=== PATIENT | female | born 1955 | race Caucasian/White ===

== ENCOUNTER 2019-05-18 10:15 | Day surgery (SDC) | payer MEDICARE, MEDICAID ==
[2019-05-13 13:43] LABS: BASOPHILS % (AUTO) 0.7 % (0-1); EOSINOPHILS # (AUTO) 0.3 X10'3 (0-0.9); EOSINOPHILS % (AUTO) 4.3 % (0-6); LYMPHOCYTES # (AUTO) 2.3 X10'3 (1.1-4.8); LYMPHOCYTES % (AUTO) 35.9 % (21-51); MEAN CORPUSCULAR HEMOGLOBIN 31.3 PG (27.0-31.0); MEAN CORPUSCULAR HGB CONC 33.6 g/dL (33.0-36.5); MEAN CORPUSCULAR VOLUME 92.9 FL (78-98); MEAN PLATELET VOLUME 7.9 FL (7.4-10.4); MONOCYTES # (AUTO) 0.3 X10'3 (0-0.9); MONOCYTES % (AUTO) 5.2 % (2-12); NEUTROPHILS # (AUTO) 3.5 X10'3 (1.8-7.7); NEUTROPHILS % (AUTO) 53.9 % (42-75); PRE OP HEMATOCRIT 37.9 % (35.0-45.0); PRE OP HEMOGLOBIN 12.7 g/dL (12.0-16.0); PRE OP PLATELET COUNT 260 X10'3 (140-440); RED BLOOD COUNT 4.08 X10'6 (4.20-5.60); RED CELL DISTRIBUTION WIDTH 13.7 % (11.5-14.5)
[2019-05-13 13:49] LABS: ALBUMIN 3.4 G/DL (3.4-5.0); ALBUMIN/GLOBULIN RATIO 0.9 (1.1-1.5); ALKALINE PHOSPHATASE 96 IU/L (46-116); BLOOD UREA NITROGEN 11 MG/DL (7-18); BUN/CREATININE RATIO 11.6 (6.6-38.0); CALCIUM 9.6 MG/DL (8.5-10.1); CHLORIDE 107 MMOL/L (99-107); CREATININE 0.95 MG/DL (0.40-0.90); PRE OP ALT 21 U/L (30-65); PRE OP ANION GAP 5 (8-16); PRE OP AST 14 U/L (10-37); PRE OP BILIRUB, TOTAL 0.2 MG/DL (0.0-1.0); PRE OP GLUCOSE 147 MG/DL (70-104); PRE OP POTASSIUM 4.1 MMOL/L (3.4-5.1); PRE OP SODIUM 142 MMOL/L (135-145); TOTAL CARBON DIOXIDE 30.5 MMOL/L (24-32); eGFR 59 ML/MIN
[2019-05-13 16:05] LABS: CLARITY,URINE SLIGHTLY CLOUDY (Clear); COLOR,URINE YELLOW (Yellow); GLUCOSE, URINE NEGATIVE (Neg); KETONES,URINE NEGATIVE (Neg); LEUKOCYTE ESTERASE ,URINE NEGATIVE (Neg); NITRITES, URINE NEGATIVE (Neg); OCCULT BLOOD,URINE TRACE-INTACT (Neg); PROTEIN,URINE NEGATIVE (Neg); UA COLLECTION TYPE CLN CATCH MIDSTREAM; UROBILINOGEN,URINE 0.2 E.U/dL (0.2-1.0)
[2019-05-13 16:11] LABS: SQUAMOUS EPITHELIAL CELL,UR FEW /LPF (FEW); TRANSITIONAL EPI CELLS,URINE FEW /HPF
[2019-05-13 16:12] LABS: BACTERIA,URINE FEW /HPF (Neg); MUCUS STRANDS FEW /LPF (Neg); RBC,URINE 0-2 /HPF (0-2); WBC,URINE 0-4 /HPF (0-4)
[~2019-05-18] VITALS: Ht 167.6 cm; Wt 110.5 kg
[2019-05-18] VITALS (8 sets, daily range): BP systolic 138–154; BP diastolic 60–85
[~2019-05-18 10:15] MED LIST: ASPI-12 PO; DIAZ10TA4 PO; DOCUMENT DATE & TIME OF BETA-BLOCKER PO ONE; FLUO20CA39 PO; HYDR25TA4 PO; LAMO200T2 PO; LISI-644 PO; METF500T PO; OMEP20CA11 PO; PROP60CA37 PO; SIMV20TA5 PO; TRAZ50TA54 PO; ZOLP10TA5 PO; cefazolin/dext.iso 2gm/100 ML IV ONE; famotidine 20mg tablet PO ONE; ringers solution, lacted 1,000 ML IV SCH
[2019-05-18] MEDS ORDERED: HYDROcodone/acetaminophen 5mg/325mg tablet PO ONE (11:45)
[2019-05-18] MEDS ORDERED: LIDOcaine 1% 30ml preserv. free vial ONE (14:39)
[2019-05-18] MEDS ORDERED: BUPIVAcaine/PF 2.5 mg/ml (0.25%) 30ml vial ONE (14:40)
[2019-05-18] MEDS ORDERED: fentaNYL/PF 50MCG/1 ML 2ML syringe ONE ×2 (14:52→15:04)
[2019-05-18] MEDS ORDERED: propofol inj 20 ML IV ONE (14:52)
[2019-05-18] MEDS ORDERED: LIDOcaine 1%/PF 5ML 10 MG/ML VIAL ONE (14:52)
[2019-05-18] MEDS ORDERED: midazolam 2 mg/2 ml injection ONE (14:52)
[2019-05-18] MEDS ORDERED: ketamine 50 mg/ml 10ml vial ONE (14:57)
[2019-05-18] MEDS ORDERED: ketamine 50mg/5ml syringe ONE (14:58)
--- NOTE | 2019-05-18 15:19 | NUR ---
Received from OR via [facility], accompanied by Anesthesiologist DR GARCIA and report given by Anesthesiologist. PT DROWSY, DENIES PAIN, LEFT LOWER ABDOMEN W/FOAM TAPE COVERING INCISION CDI. Addendum: 05/18/19 at 1709 by Yeny Ramirez RN Amended: Links added.
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
== END 2019-05-18 16:19 | disposition home or self-care (01) ==
LOC: PAS 10:15
PROVIDERS: ATTEND Surgery
DX: D17.1 Benign lipomatous neoplasm of skin and subcutaneous tissue of trunk (principal); E11.9 Type 2 diabetes mellitus without complications; I10 Essential (primary) hypertension; G47.33 Obstructive sleep apnea (adult) (pediatric); F31.9 Bipolar disorder, unspecified; M19.90 Unspecified osteoarthritis, unspecified site; E66.9 Obesity, unspecified; Z68.39 Body mass index [BMI] 39.0-39.9, adult; Z98.890 Other specified postprocedural states; Z90.49 Acquired absence of other specified parts of digestive tract; Z79.84 Long term (current) use of oral hypoglycemic drugs; Z79.82 Long term (current) use of aspirin; Z79.899 Other long term (current) drug therapy
CPT/HCPCS: 22903; 36415; 80053; 81001; 82948; 85025; 93005; J2001; J2250; J2704; J3010; J3490; 88304; A4215; A4618; A6449; A7000; J7120

== ENCOUNTER 2019-05-27 18:23 | Inpatient (IN) | payer MEDICARE, MEDICAID ==
[~2019-05-27] VITALS: Ht 167.6 cm; Wt 115.0 kg
[~2019-05-27 18:23] MED LIST changes: -DOCUMENT DATE & TIME OF BETA-BLOCKER PO ONE; -PROP60CA37 PO; -cefazolin/dext.iso 2gm/100 ML IV ONE; -famotidine 20mg tablet PO ONE; -ringers solution, lacted 1,000 ML IV SCH
[2019-05-27] MEDS ORDERED: normal saline 1000ML IV soln IV ONE (18:40)
[2019-05-27] MEDS ORDERED: CefTRIAXone 2gm/D5W 50ml 50 ML IV ONE (18:40)
[2019-05-27] MEDS ORDERED: ondansetron/PF 4mg/2ml inj IV ONE (18:40)
[2019-05-27] MEDS ORDERED: fentaNYL/PF 50MCG/1 ML 2ML syringe IV ONE ×2 (18:40→21:05)
--- NOTE | 2019-05-27 19:09 | NUR ---
PRESSURE BAG ON FLUIDS
[2019-05-27 19:11] LABS: BASOPHILS % (AUTO) 0.4 % (0-1); EOSINOPHILS # (AUTO) 0.1 X10'3 (0-0.9); EOSINOPHILS % (AUTO) 1.8 % (0-6); HEMATOCRIT 24.4 % (35.0-45.0); HEMOGLOBIN 8.4 g/dl (12.0-16.0); LYMPHOCYTES # (AUTO) 2.6 X10'3 (1.1-4.8); MEAN CORPUSCULAR HEMOGLOBIN 31.7 PG (27.0-31.0); MEAN CORPUSCULAR HGB CONC 34.4 g/dL (33.0-36.5); MEAN CORPUSCULAR VOLUME 92.2 FL (78-98); MEAN PLATELET VOLUME 7.5 FL (7.4-10.4); MONOCYTES # (AUTO) 0.5 X10'3 (0-0.9); MONOCYTES % (AUTO) 6.3 % (2-12); NEUTROPHILS # (AUTO) 4.2 X10'3 (1.8-7.7); NEUTROPHILS % (AUTO) 56.5 % (42-75); PLATELET COUNT 261 X10'3 (140-440); RED BLOOD COUNT 2.65 X10'6 (4.20-5.60); RED CELL DISTRIBUTION WIDTH 13.6 % (11.5-14.5); WHITE BLOOD COUNT 7.5 X10'3 (4.5-11.0)
[2019-05-27 19:25] LABS: ALANINE AMINOTRANSFERASE 18 U/L (12-78); ALBUMIN 3.1 G/DL (3.4-5.0); ALKALINE PHOSPHATASE 87 IU/L (46-116); ANION GAP 7 (8-16); ASPARTATE AMINO TRANSFERASE 8 U/L (10-37); BILIRUBIN,TOTAL 0.2 MG/DL (0.1-1.0); BLOOD UREA NITROGEN 26 MG/DL (7-18); BUN/CREATININE RATIO 21.1 (6.6-38.0); CALCIUM 9.2 MG/DL (8.5-10.1); CHLORIDE 106 MMOL/L (99-107); CREATININE 1.23 MG/DL (0.40-0.90); GLUCOSE 130 MG/DL (70-104); MAGNESIUM 1.4 MG/DL (1.5-2.4); POTASSIUM 4.5 MMOL/L (3.5-5.1); SODIUM 138 MMOL/L (135-145); TOTAL CARBON DIOXIDE 24.7 MMOL/L (24-32); TOTAL PROTEIN 6.2 G/DL (6.4-8.2); eGFR 44 ML/MIN
--- NOTE | 2019-05-27 19:26 | NUR ---
PT IS IN CT
[2019-05-27 19:29] LABS: PARTIAL THROMBOPLASTIN TIME 23 SECONDS (22-32)
--- NOTE | 2019-05-27 19:39 | NUR ---
BACK IN BED
[2019-05-27 19:45] LABS: CLARITY,URINE CLEAR (Clear); COLOR,URINE YELLOW (Yellow); GLUCOSE, URINE NEGATIVE (Neg); KETONES,URINE NEGATIVE (Neg); LEUKOCYTE ESTERASE ,URINE TRACE (Neg); NITRITES, URINE NEGATIVE (Neg); OCCULT BLOOD,URINE NEGATIVE (Neg); PH,URINE 5.5 (4.8-8.0); PROTEIN,URINE NEGATIVE (Neg); UA COLLECTION TYPE NON-SPECIFIED; UROBILINOGEN,URINE 0.2 E.U/dL (0.2-1.0)
[2019-05-27 19:51] LABS: BACTERIA,URINE NONE SEEN /HPF (Neg); RBC,URINE NONE SEEN /HPF (0-2); SQUAMOUS EPITHELIAL CELL,UR FEW /LPF (FEW); WBC,URINE 0-4 /HPF (0-4)
[2019-05-27 20:00] VITALS: BP 124/74
--- NOTE | 2019-05-27 20:34 | NUR ---
UP TO THE BATHROOM, SHE IS VERY WEAK, GETS DIZZY EASILY AND SOB.
--- NOTE | 2019-05-27 20:35 | NUR ---
PT STATES SHE HAD BLACK STOOL LAST NIGHT, HER HEMOGLOBIN HAS DROPPED NEARLY 4 POINTS IN 2 WEEKS. HE HAS A 'LAP BAND', THE HAD IT DONE IN [place]' SHE DOESN'T WANT ANY BLOOD PRODUCTS, SHE UNDERSTANDS WHAT 'HEMOGLOBIN' MEANS, DISCUSSED THIS WITH HER. SHE IS [employer] WITNESS, AND IT IS ALSO HER BELIEF. MD NEFF INFORMED, ASSISTED WITH A GUIAC OF STOOL, WHICH IS POSITIVE. DARK STOOL ON HIS GLOVE.
[2019-05-27] MEDS ORDERED: pantoprazole 40 MG vial IV ONE (20:40)
[2019-05-27] MEDS ORDERED: ESOMEPRAZOLE 40 MG VIAL IV ONE (21:02)
--- NOTE | 2019-05-27 21:15 | NUR ---
pt at bedside, no needs at this time, will obtain med list
[2019-05-27] MEDS: pantoprazole 40MG/NS 100ML BAG 100 ML IV SCH (21:18)
[2019-05-27] MEDS ORDERED: morphine 2 MG/ML inj. syringe IV PRN (21:40)
[2019-05-27 21:54] LABS: OCCULT BLOOD STOOL POSITIVE (Neg)
[2019-05-27] MEDS: normal saline 1000ml 1,000 ML IV SCH (22:07)
[2019-05-27 22:23] LABS: BASOPHILS % (AUTO) 0.5 % (0-1); EOSINOPHILS # (AUTO) 0.2 X10'3 (0-0.9); EOSINOPHILS % (AUTO) 2.7 % (0-6); HEMATOCRIT 23.6 % (35.0-45.0); HEMOGLOBIN 7.9 g/dl (12.0-16.0); LYMPHOCYTES # (AUTO) 2.6 X10'3 (1.1-4.8); LYMPHOCYTES % (AUTO) 39.6 % (21-51); MEAN CORPUSCULAR HEMOGLOBIN 31.2 PG (27.0-31.0); MEAN CORPUSCULAR HGB CONC 33.4 g/dL (33.0-36.5); MEAN CORPUSCULAR VOLUME 93.5 FL (78-98); MEAN PLATELET VOLUME 7.6 FL (7.4-10.4); MONOCYTES # (AUTO) 0.4 X10'3 (0-0.9); MONOCYTES % (AUTO) 6.1 % (2-12); NEUTROPHILS # (AUTO) 3.3 X10'3 (1.8-7.7); NEUTROPHILS % (AUTO) 51.1 % (42-75); PLATELET COUNT 236 X10'3 (140-440); RED BLOOD COUNT 2.52 X10'6 (4.20-5.60); RED CELL DISTRIBUTION WIDTH 13.7 % (11.5-14.5); WHITE BLOOD COUNT 6.5 X10'3 (4.5-11.0)
--- NOTE | 2019-05-27 22:23 | NUR ---
assisted pt to the commode
[2019-05-27] MEDS: traZODone 50mg tablet PO SCH (22:58)
[2019-05-27] MEDS: lamoTRIgine 100mg tablet PO SCH (22:58)
[2019-05-27] MEDS: zolpidem 5mg tablet PO SCH (22:58)
[2019-05-27] MEDS ORDERED: epoetin 20,000 units/ml inj SQ ONE (23:10)
[2019-05-27] MEDS ORDERED: tranexamic acid inj. 1,150 MG in normal saline 100ml IV soln 100 ML IV ONE (23:15)
[2019-05-28] VITALS (13 sets, daily range): BP systolic 92–137; BP diastolic 41–69
[2019-05-28 01:44] LABS: BASOPHILS % (AUTO) 0.4 % (0-1); EOSINOPHILS # (AUTO) 0.2 X10'3 (0-0.9); EOSINOPHILS % (AUTO) 2.8 % (0-6); HEMATOCRIT 22.7 % (35.0-45.0); HEMOGLOBIN 7.6 g/dl (12.0-16.0); LYMPHOCYTES # (AUTO) 2.6 X10'3 (1.1-4.8); LYMPHOCYTES % (AUTO) 39.9 % (21-51); MEAN CORPUSCULAR HEMOGLOBIN 31.2 PG (27.0-31.0); MEAN CORPUSCULAR HGB CONC 33.5 g/dL (33.0-36.5); MEAN CORPUSCULAR VOLUME 93.1 FL (78-98); MEAN PLATELET VOLUME 7.1 FL (7.4-10.4); MONOCYTES # (AUTO) 0.4 X10'3 (0-0.9); MONOCYTES % (AUTO) 6.8 % (2-12); NEUTROPHILS # (AUTO) 3.3 X10'3 (1.8-7.7); NEUTROPHILS % (AUTO) 50.1 % (42-75); PLATELET COUNT 232 X10'3 (140-440); RED BLOOD COUNT 2.43 X10'6 (4.20-5.60); RED CELL DISTRIBUTION WIDTH 13.7 % (11.5-14.5); WHITE BLOOD COUNT 6.5 X10'3 (4.5-11.0)
[2019-05-28 01:51] LABS: HEMOGLOBIN A1C 6.2 % (4.5-6.2)
[2019-05-28 01:54] LABS: ALANINE AMINOTRANSFERASE 14 U/L (12-78); ALBUMIN 2.6 G/DL (3.4-5.0); ALBUMIN/GLOBULIN RATIO 0.9 (1.1-1.5); ALKALINE PHOSPHATASE 79 IU/L (46-116); ANION GAP 6 (8-16); ASPARTATE AMINO TRANSFERASE 11 U/L (10-37); BILIRUBIN,TOTAL 0.2 MG/DL (0.1-1.0); BLOOD UREA NITROGEN 21 MG/DL (7-18); BUN/CREATININE RATIO 20.4 (6.6-38.0); CALCIUM 8.4 MG/DL (8.5-10.1); CHLORIDE 109 MMOL/L (99-107); CREATININE 1.03 MG/DL (0.40-0.90); GLUCOSE 130 MG/DL (70-104); POTASSIUM 4.2 MMOL/L (3.5-5.1); SODIUM 141 MMOL/L (135-145); TOTAL CARBON DIOXIDE 26.1 MMOL/L (24-32); TOTAL PROTEIN 5.5 G/DL (6.4-8.2); eGFR 54 ML/MIN
[2019-05-28] MEDS: pantoprazole 40MG/NS 100ML BAG 100 ML IV SCH ×6 (02:14→22:24)
--- NOTE | 2019-05-28 06:34 | NUR ---
Patient in room [facility]. I have received report from CHICO. KATERINA and had the opportunity to ask questions and assume patient care.
--- NOTE | 2019-05-28 06:40 | NUR ---
Problems reprioritized. Patient report given, questions answered & plan of care reviewed with Boogie BORGES.
[2019-05-28] MEDS: FLUoxetine 20mg capsule PO SCH (08:18)
[2019-05-28] MEDS: normal saline 1000ml 1,000 ML IV SCH ×3 (08:19→20:30)
[2019-05-28] MEDS: lamoTRIgine 100mg tablet PO SCH ×2 (08:19→20:30)
[2019-05-28] MEDS ORDERED: insulin Lispro (HumaLOG) vial - multi-dose SQ SCH (13:00)
[2019-05-28] MEDS ORDERED: insulin regular, human vial - multi-dose SQ SCH (13:00)
[2019-05-28] MEDS ORDERED: MESSAGE TO PHARMACY PO ONE (13:00)
[2019-05-28] MEDS ORDERED: glucagon, human recombinant 1mg kit SUBCUT PRN (13:00)
[2019-05-28] MEDS ORDERED: dextrose 50%-water 50ml dispensing syringe IV PRN ×2 (13:00)
[2019-05-28] MEDS ORDERED: dextrose ORAL solution 15 GM/59 ML bottle PO PRN ×2 (13:00)
--- NOTE | 2019-05-28 13:39 | NUR ---
patient down to GI lab.
[2019-05-28] MEDS ORDERED: fentaNYL/PF 50MCG/1 ML 2ML syringe ONE (14:21)
[2019-05-28] MEDS ORDERED: MIDAZolam 5mg/5ml vial ONE (14:21)
[2019-05-28] MEDS ORDERED: LIDOcaine Viscous 15ml cup ONE (14:21)
--- NOTE | 2019-05-28 15:39 | NUR ---
patient back to room 341
[2019-05-28 16:22] LABS: H PYLORI ANTIBODY NEGATIVE (Neg)
[2019-05-28] MEDS: morphine 2 MG/ML inj. syringe IV PRN (17:13)
--- NOTE | 2019-05-28 18:16 | NUR ---
Problems reprioritized. Patient report given, questions answered & plan of care reviewed with KATERINA AGOSTO.
--- NOTE | 2019-05-28 18:49 | NUR ---
Received report from Boogie BORGES pt is sitting on the edge of bed states she has to use the restroom, on RA
[2019-05-28] MEDS: insulin glargine (Lantus) pen - multi-dose SQ SCH (21:00)
[2019-05-28] MEDS: zolpidem 5mg tablet PO SCH (22:23)
[2019-05-28] MEDS: traZODone 50mg tablet PO SCH (22:23)
[2019-05-29 00:30] VITALS: BP 117/40
[2019-05-29] MEDS: pantoprazole 40MG/NS 100ML BAG 100 ML IV SCH ×4 (03:12→21:06)
[2019-05-29 05:29] LABS: BASOPHILS % (AUTO) 0.6 % (0-1); EOSINOPHILS # (AUTO) 0.2 X10'3 (0-0.9); EOSINOPHILS % (AUTO) 3.6 % (0-6); HEMATOCRIT 23.1 % (35.0-45.0); HEMOGLOBIN 7.8 g/dl (12.0-16.0); LYMPHOCYTES # (AUTO) 2.4 X10'3 (1.1-4.8); LYMPHOCYTES % (AUTO) 45.3 % (21-51); MEAN CORPUSCULAR HEMOGLOBIN 31.8 PG (27.0-31.0); MEAN CORPUSCULAR HGB CONC 33.9 g/dL (33.0-36.5); MEAN CORPUSCULAR VOLUME 93.8 FL (78-98); MEAN PLATELET VOLUME 7.5 FL (7.4-10.4); MONOCYTES # (AUTO) 0.3 X10'3 (0-0.9); MONOCYTES % (AUTO) 6.5 % (2-12); NEUTROPHILS # (AUTO) 2.3 X10'3 (1.8-7.7); PLATELET COUNT 252 X10'3 (140-440); RED BLOOD COUNT 2.46 X10'6 (4.20-5.60); RED CELL DISTRIBUTION WIDTH 13.9 % (11.5-14.5); WHITE BLOOD COUNT 5.2 X10'3 (4.5-11.0)
[2019-05-29] MEDS: normal saline 1000ml 1,000 ML IV SCH ×2 (05:34→23:39)
[2019-05-29 05:53] LABS: ALANINE AMINOTRANSFERASE 16 U/L (12-78); ALBUMIN 2.8 G/DL (3.4-5.0); ALKALINE PHOSPHATASE 81 IU/L (46-116); ANION GAP 6 (8-16); ASPARTATE AMINO TRANSFERASE 11 U/L (10-37); BILIRUBIN,TOTAL 0.2 MG/DL (0.1-1.0); BLOOD UREA NITROGEN 7 MG/DL (7-18); BUN/CREATININE RATIO 8.2 (6.6-38.0); CALCIUM 9.4 MG/DL (8.5-10.1); CHLORIDE 111 MMOL/L (99-107); CREATININE 0.85 MG/DL (0.40-0.90); GLUCOSE 110 MG/DL (70-104); POTASSIUM 4.1 MMOL/L (3.5-5.1); SODIUM 142 MMOL/L (135-145); TOTAL CARBON DIOXIDE 25.4 MMOL/L (24-32); TOTAL PROTEIN 5.7 G/DL (6.4-8.2); eGFR 67 ML/MIN
--- NOTE | 2019-05-29 06:27 | NUR ---
Gave report to Asuncion BORGES pt is resting on RA, breaths even and unlabored, in no apparent distress, call light and items of freq use within reach.
--- NOTE | 2019-05-29 06:53 | NUR ---
Patient in room [facility] 341. I have received report from Charito BORGES and had the opportunity to ask questions and assume patient care.
[2019-05-29 07:00] VITALS: BP 145/53
[2019-05-29] MEDS: lamoTRIgine 100mg tablet PO SCH ×2 (08:15→21:06)
[2019-05-29] MEDS: FLUoxetine 20mg capsule PO SCH (08:15)
[2019-05-29 11:00] VITALS: BP 171/74
[2019-05-29] MEDS: ondansetron/PF 4mg/2ml inj IV PRN (11:15)
--- NOTE | 2019-05-29 14:17 | NUR ---
Patient was crying and states "I'm feeling depressed I need Valium! Patient also requesting for Flonase nasal spray. Paged about this, she called me back. Dr. Kramer said she does not want to order Valium for this patient but I need to have Signs And Displays Salesperson speak to her. I asked her about Flonase spray, she did not gave me an order for Flonase. Paged Panel Cutter
[2019-05-29] MEDS: morphine 2 MG/ML inj. syringe IV PRN (15:51)
--- NOTE | 2019-05-29 18:05 | NUR ---
Patient in room [facility] 341. I have received report from Asuncion BORGES and had the opportunity to ask questions and assume patient care.
--- NOTE | 2019-05-29 18:40 | NUR ---
Problems reprioritized. Patient report given, questions answered & plan of care reviewed with Ahsan BORGES.
[2019-05-29 20:00] VITALS: BP 135/43
[2019-05-29] MEDS: insulin glargine (Lantus) pen - multi-dose SQ SCH (21:00)
[2019-05-29] MEDS: traZODone 50mg tablet PO SCH (22:47)
[2019-05-29] MEDS: zolpidem 5mg tablet PO SCH (22:47)
[2019-05-30] VITALS: BP 135/68
[2019-05-30] MEDS ORDERED: bisacodyl 10mg suppository rectal RC PRN (00:25)
[2019-05-30] MEDS ORDERED: docusate sod 100mg capsule PO ONE (00:25)
[2019-05-30] MEDS: pantoprazole 40MG/NS 100ML BAG 100 ML IV SCH ×2 (02:24→07:34)
[2019-05-30 06:07] LABS: BASOPHILS % (AUTO) 0.3 % (0-1); EOSINOPHILS # (AUTO) 0.2 X10'3 (0-0.9); EOSINOPHILS % (AUTO) 3.1 % (0-6); HEMATOCRIT 22.6 % (35.0-45.0); HEMOGLOBIN 7.6 g/dl (12.0-16.0); LYMPHOCYTES % (AUTO) 38.4 % (21-51); MEAN CORPUSCULAR HEMOGLOBIN 31.8 PG (27.0-31.0); MEAN CORPUSCULAR HGB CONC 33.8 g/dL (33.0-36.5); MEAN CORPUSCULAR VOLUME 94.1 FL (78-98); MEAN PLATELET VOLUME 7.6 FL (7.4-10.4); MONOCYTES # (AUTO) 0.4 X10'3 (0-0.9); MONOCYTES % (AUTO) 7.6 % (2-12); NEUTROPHILS # (AUTO) 2.7 X10'3 (1.8-7.7); NEUTROPHILS % (AUTO) 50.6 % (42-75); PLATELET COUNT 269 X10'3 (140-440); RED CELL DISTRIBUTION WIDTH 13.8 % (11.5-14.5); WHITE BLOOD COUNT 5.3 X10'3 (4.5-11.0)
--- NOTE | 2019-05-30 06:15 | NUR ---
Patient in room [facility] 341. I have received report from Ahsan BORGES and had the opportunity to ask questions and assume patient care.
--- NOTE | 2019-05-30 06:20 | NUR ---
Problems reprioritized. Patient report given, questions answered & plan of care reviewed with Asuncion BORGES.
[2019-05-30 06:22] LABS: ALANINE AMINOTRANSFERASE 16 U/L (12-78); ALBUMIN 2.8 G/DL (3.4-5.0); ALBUMIN/GLOBULIN RATIO 0.9 (1.1-1.5); ALKALINE PHOSPHATASE 77 IU/L (46-116); ANION GAP 7 (8-16); ASPARTATE AMINO TRANSFERASE 10 U/L (10-37); BILIRUBIN,TOTAL 0.2 MG/DL (0.1-1.0); BLOOD UREA NITROGEN 7 MG/DL (7-18); BUN/CREATININE RATIO 7.8 (6.6-38.0); CALCIUM 8.9 MG/DL (8.5-10.1); CHLORIDE 110 MMOL/L (99-107); GLUCOSE 117 MG/DL (70-104); POTASSIUM 4.2 MMOL/L (3.5-5.1); SODIUM 145 MMOL/L (135-145); TOTAL CARBON DIOXIDE 28.2 MMOL/L (24-32); TOTAL PROTEIN 5.8 G/DL (6.4-8.2); eGFR 63 ML/MIN
[2019-05-30 07:00] VITALS: BP 113/54
[2019-05-30] MEDS: normal saline 1000ml 1,000 ML IV SCH (07:29)
[2019-05-30] MEDS: FLUoxetine 20mg capsule PO SCH (07:30)
[2019-05-30] MEDS: lamoTRIgine 100mg tablet PO SCH (07:30)
[2019-05-30] MEDS ORDERED: docusate sod 100mg capsule PO SCH (08:00)
--- NOTE | 2019-05-30 08:36 | NUR ---
Patient reported to me that she had bowel movement last night and it was black color and hard
[2019-05-30 11:00] VITALS: BP 137/73
[2019-05-30] MEDS: ondansetron/PF 4mg/2ml inj IV PRN (11:50)
[2019-05-30] MEDS ORDERED: PANT40TA4 PO (13:48)
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
--- NOTE | 2019-05-30 15:13 | NUR ---
Patient reported that she will have her granddaughter to give her a ride. Talent Engineer Phyllis notified to cancel the prearranged transportation
[2019-05-30] MEDS ORDERED: pantoprazole 40mg Tablet.DR PO SCH (20:00)
== END 2019-05-30 15:40 | disposition home or self-care (01) | DRG 377 ==
LOC: ER 18:23 → SUR 3N 23:59
PROVIDERS: ADMIT Internal Medicine; ATTEND Internal Medicine
PROC: 0DJ08ZZ Inspection of Upper Intestinal Tract, Via Natural or Artificial Opening Endoscopic (ICD-10-PCS; principal; 2019-05-28)
DX: K26.0 Acute duodenal ulcer with hemorrhage (principal); N17.0 Acute kidney failure with tubular necrosis; D62 Acute posthemorrhagic anemia; K29.71 Gastritis, unspecified, with bleeding; E78.5 Hyperlipidemia, unspecified; F41.9 Anxiety disorder, unspecified; K20.9 Esophagitis, unspecified; E78.00 Pure hypercholesterolemia, unspecified; E11.69 Type 2 diabetes mellitus with other specified complication; F32.9 Major depressive disorder, single episode, unspecified; M54.9 Dorsalgia, unspecified; G89.29 Other chronic pain; K44.9 Diaphragmatic hernia without obstruction or gangrene; I10 Essential (primary) hypertension; Z88.8 Allergy status to other drugs, medicaments and biological substances; Z98.84 Bariatric surgery status
CPT/HCPCS: 36415; 43235; 71045; 74176; 80053; 81001; 82272; 82948; 83036; 83605; 83735; 84145; 84484; 85025; 85610; 85730; 86677; 87040; 87081; 87088; 93005; 96361; 96365; 96367; 96372; 96375; 96376; 99152; 99285; A4620; C9113; G0378; J0696; J1815; J2250; J2270; J2405; J3010; J7030; J7040; Q4081